=== PATIENT | female | born 1985 | race Hispanic/Latino ===

== ENCOUNTER 2019-02-27 16:39 | Inpatient (IN) | payer BC, MEDICAID, MEDICARE, OTHER ==
[2019-02-27 16:41] VITALS: BMI 23.7
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
[2019-02-27 17:53] LABS: PHENCYCLIDINE, UR NEGATIVE (NEGATIVE)
[2019-02-27 17:57] LABS: BARBITURATES, UR NEGATIVE (NEGATIVE); BENZODIAZEPINES, UR NEGATIVE (NEGATIVE); OPIATES, UR NEGATIVE (NEGATIVE)
[2019-02-27] MEDS ORDERED: Magnesium Sulfate 1 gm in D5W 1 GM/100 ML BAG IVPB ONE (18:33)
--- NOTE | 2019-02-27 21:16 | CARD ---
APPROVED REPORT Date of service: 02/27/2019 EKG Measurement Heart [id number] <Conclusion> NSR with bigemminal PVC's, rare couplet Leftward axis Slow R wave progression V1-3. Cannot exclde old ASMI CCR Abnormal ECG
[2019-02-27] MEDS ORDERED: levETIRAcetam 1000mg/100ml NS 100 ML IV ONE (21:45)
[2019-02-27] MEDS ORDERED: levETIRAcetam 1,000 MG in Sodium Chloride 0.9% 100 ML IVPB SCH (22:00)
[2019-02-27] MEDS: levETIRAcetam 1000mg/100ml NS 100 ML IV SCH (22:27)
[2019-02-27 23:05] LABS: BASO # 0.02 K/mm3 (0.0-2.0); BASO % 0.2 % (0.0-3.0); EOS % 0.1 % (1.5-5.0); HEMOGLOBIN 11.2 g/dL (12.0-16.0); LYMPH % 16.2 % (22.0-35.0); MEAN CELL VOLUME 88.9 fl (80.0-105.0); MEAN CORPUSCULAR HEMOGLOBIN 28.3 pg (25.0-35.0); MEAN CORPUSCULAR HGB CONC 31.8 g/dl (31.0-37.0); MEAN PLATELET VOLUME 9.6 fl (7.0-11.0); MONO % 8.2 % (1.0-6.0); RBC 3.96 10^6/uL (3.5-6.1); RED CELL DISTRIBUTION WIDTH 18.6 % (11.5-14.5); WHITE BLOOD COUNT 12.6 10^3/uL (4.5-11.0)
[2019-02-27 23:13] LABS: ALB/GLOB RATIO 1.2 (1.1-1.8); ALBUMIN 3.2 g/dL (3.0-4.8); ALT/SGPT 15 U/L (7-56); AST/SGOT 41 U/L (14-36); BLOOD UREA NITROGEN 6 mg/dL (7-21); GFR NON-AFRICAN AMERICAN > 60
[2019-02-27 23:24] LABS: TROPONIN I 0.08 ng/mL
[2019-02-27 23:29] LABS: FREE T4 0.86 ng/dL (0.78-2.19)
[2019-02-27] MEDS ORDERED: Pneumococcal 23-Valent Vaccine IM ONE (23:29)
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
[2019-02-28] MEDS ORDERED: Potassium Chloride 20 mEq ER Tab PO STA (05:03)
[2019-02-28 08:07] LABS: BASO # 0.03 K/mm3 (0.0-2.0); BASO % 0.3 % (0.0-3.0); EOS # 0.1 (0.0-0.7); EOS % 0.6 % (1.5-5.0); HEMOGLOBIN 10.6 g/dL (12.0-16.0); LYMPH % 37.8 % (22.0-35.0); MEAN CELL VOLUME 90.3 fl (80.0-105.0); MEAN CORPUSCULAR HEMOGLOBIN 27.8 pg (25.0-35.0); MEAN CORPUSCULAR HGB CONC 30.8 g/dl (31.0-37.0); MEAN PLATELET VOLUME 9.2 fl (7.0-11.0); MONO % 9.6 % (1.0-6.0); RBC 3.81 10^6/uL (3.5-6.1); WHITE BLOOD COUNT 10.7 10^3/uL (4.5-11.0)
[2019-02-28 08:18] LABS: ALB/GLOB RATIO 1.1 (1.1-1.8); ALBUMIN 2.9 g/dL (3.0-4.8); ALT/SGPT < 6 U/L (7-56); AST/SGOT 29 U/L (14-36); BLOOD UREA NITROGEN 8 mg/dL (7-21); CALCIUM 7.9 mg/dL (8.4-10.5); GFR NON-AFRICAN AMERICAN > 60
--- NOTE | 2019-02-28 08:28 | CT ---
Date of service: 02/27/2019 PROCEDURE: CT HEAD WITHOUT CONTRAST. HISTORY: s/p seizure COMPARISON: None available. TECHNIQUE: Axial computed tomography images were obtained through the head/brain without intravenous contrast. Radiation dose: Total exam DLP = 913.39 mGy-cm. This CT exam was performed using one or more of the following dose reduction techniques: Automated exposure control, adjustment of the mA and/or kV according to patient size, and/or use of iterative reconstruction technique. FINDINGS: HEMORRHAGE: No intracranial hemorrhage. BRAIN: No mass effect or edema. No atrophy or chronic microvascular ischemic changes. VENTRICLES: Unremarkable. No hydrocephalus. CALVARIUM: Unremarkable. PARANASAL SINUSES: Unremarkable as visualized. No significant inflammatory changes. MASTOID AIR CELLS: Unremarkable as visualized. No inflammatory changes. OTHER FINDINGS: The report concurs with the preliminary [facility] report IMPRESSION: Normal CT of the Head.
[2019-02-28] MEDS: levETIRAcetam 1000mg/100ml NS 100 ML IV SCH (09:55)
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
[2019-02-28 11:32] LABS: PHENCYCLIDINE, UR NEGATIVE (NEGATIVE)
[2019-02-28 11:34] LABS: BARBITURATES, UR NEGATIVE (NEGATIVE); BENZODIAZEPINES, UR NEGATIVE (NEGATIVE); OPIATES, UR NEGATIVE (NEGATIVE)
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
[2019-02-28] MEDS ORDERED: Lidocaine PF 2% (5 ml) Inj (For Cardiac Arrhy) ONE (13:17)
[2019-02-28] MEDS ORDERED: Nitroglycerin 50mg in D5W 50 MG/250 ML BOTTLE IV ONE (13:18)
[2019-02-28] MEDS ORDERED: Verapamil 2 ML ONE (13:18)
[2019-02-28] MEDS ORDERED: Phenylephrine 10 mg/ml Inj ONE (13:19)
[2019-02-28] MEDS ORDERED: Iohexol 350mgl/ml 50 ML ONE (13:20)
[2019-02-28] MEDS ORDERED: Iohexol 350 MG/100 ML VIAL ONE (13:20)
[2019-02-28] MEDS ORDERED: Midazolam 2 MG/2 ML VIAL ONE ×2 (13:47→14:04)
[2019-02-28] MEDS ORDERED: Bacitracin 500 Units/gm Oint Foilpak UD TOP ONE (14:18)
[2019-02-28] MEDS ORDERED: Sodium Chloride 0.9% 1,000 ML IV SCH (14:30)
--- NOTE | 2019-02-28 14:54 | CARD ---
APPROVED REPORT Date of service: 02/28/2019 Procedure(s) performed: Left Heart Catheterization HISTORY The patient is a 33 year-old female with a history of : chronic lung disease, tobacco history() : The patient is a current smoker , Hx of substance abuse in ppast , Hx of ETOH abuse admitted with three episode of Syncope ? Hx of VT.. INDICATION The indication(s) include : arrhythmia, syncope. CASE TECHNIQUE The patient was brought urgently to the Cardiac Catheterization Laboratory in a fasting state and was prepped and draped in a sterile manner. The left femoral groin was infiltrated with 2% Lidocaine subcutaneous anesthesia. A 6FR GLIDESHEATH ACCESS KIT sheath was inserted into the left radial artery without difficulty. Coronary angiography was performed using coronary diagnostic catheters. The left coronary system was accessed and visualized with a Diagnostic , 5F JL 4 CATH DXT 100 CM catheter. The right coronary system was accessed and visualized with a Diagnostic ,5F JR 4 CATH DXT 100 CM catheter. The left ventricle was accessed and visualized with a 5F PIGTAIL 145 CATH DXT 110 CM catheter. Left ventricular/Aortic Valve gradient assessed on pullback. Left ventriculogram was performed in DERAS projection. The patient tolerated the procedure well and there were no complications associated with the procedure. Vessel Analysis The patient's coronary anatomy is co-dominant. The left main coronary artery is a large size vessel without significant stenosis. The left main bifurcates to the left anterior descending and circumflex. The left anterior descending artery is a medium size vessel without significant stenosis. The first diagonal branch is a medium size vessel with intimal irregularities and without significant stenosis. The second diagonal branch is a medium size vessel without significant stenosis. The circumflex artery is a medium size vessel without significant stenosis. The first obtuse marginal branch is a small size vessel without significant stenosis. The left posterior descending artery is a medium size vessel without significant stenosis. The right coronary artery is a large size vessel with intimal irregularities. The right posterior descending artery is a medium size vessel with intimal irregularities and without significant stenosis. The right posterolateral branch is a medium size vessel with diffuse calcification noted throughout this vessel and without significant stenosis. Left Ventricle The left ventricle is enlarged in size with moderately decreased contractility. Non-Ischemic cardiomyopathy. The left ventricular ejection fraction is estimated to be 35%. The left ventricular end diastolic pressure is 12-14 mmHg. There was no gradient across the aortic valve upon pullback. Conclusion Normal coronaries Non Ischemic CMP, EF-35%, EDP-12-14 Recommendations Smoking Cessation Aggressive Medical TherapyCardiac Risk Reduction Program Abstinence of Substance abuse, Eval for EPS. Interim continue Corge, Lisinopril and ASA 81 mg po daily. CC; dr. Oquendo.
--- NOTE | 2019-02-28 15:28 | CPOSTOP ---
DATE: 02/28/2019 DICTATING PHYSICIAN: Matt Baer MD BLAST FURNACE BLOWER: Tiffany. TYPE OF ANESTHESIA: Moderate conscious sedation; total 3 mg of Versed and 150 of fentanyl given. PRE-PROCEDURE DIAGNOSES: Recurrent syncope, ventricular fibrillation, rule out ischemia, rule out cardiomyopathy. PROCEDURE PERFORMED: Left heart catheterization. FINDINGS: Normal coronaries, decreased LV function. FINAL DIAGNOSES: Nonischemic cardiomyopathy, ventricular tachycardia. POST PROCEDURE CONDITION: The patient's condition is stable. VASCULAR ACCESS SITE: Left radial. CLOSURE DEVICE: TR band. TOTAL RADIATION DOSE: 3616.2 milligray unit. CUMULATIVE DOSE: 500. TOTAL FLUORO TIME: 1.7 minutes. Matt Baer MD
[2019-02-28] MEDS ORDERED: Bacitracin 500 Units/gm Oint Foilpak UD ONE (17:49)
[2019-02-28 18:35] LABS: BLOOD UREA NITROGEN 7 mg/dL (7-21); CALCIUM 7.5 mg/dL (8.4-10.5); GFR NON-AFRICAN AMERICAN > 60
--- NOTE | 2019-02-28 18:55 | CARD ---
APPROVED REPORT Date of service: 02/28/2019 EKG Measurement Heart [id number] <Conclusion> Normal sinus rhythm Non specific T-wave changes Cannot rule out small or absent R waves V1-V3, may be due to lead placement or possible septal infarct age undetermined. Abnormal ECG
--- NOTE | 2019-02-28 20:22 | CARD ---
APPROVED REPORT Date of service: 02/28/2019 EXAM: Two-dimensional and M-mode echocardiogram with Doppler and color Doppler. INDICATION PVC, PAC,? SCD 2D DIMENSIONS IVSd0.8 (0.7-1.1cm)LVDd5.2 (3.9-5.9cm) PWd1.2 (0.7-1.1cm)LVDs4.4 (2.5-4.0cm) FS (%) 16.0 %LVEF (%)33.5 (>50%) M-Mode DIMENSIONS Aortic Root3.50 (2.2-3.7cm)Aortic Cusp Exc.1.90 (1.5-2.0cm) Aortic Valve AoV Peak Yhihykxm929.0cm/Gagan Peak GR.6mmHg Mitral Valve MV E Feircvvz29.1cm/sMV A Ztpmxkbi09.8cm/sE/A ratio0.8 TDI Lateral E' Peak V7.60cm/sMedial E' Peak V7.12cm/sE/Lateral E'9.4 E/Medial E'10.0 Pulmonary Valve PV Peak Giotgdnm05.8cm/sPV Peak Grad.1mmHg Tricuspid Valve TR Peak Mymcemzb024tp/sRAP [id number] Peak Gr.26mmHg [id number] LEFT VENTRICLE The left ventricle is normal size. There is normal left ventricular wall thickness. The systolic function is severely impaired. There is global hypokinesis of the left ventricle. Transmitral Doppler flow pattern is Grade I-abnormal relaxation pattern. No left ventricle thrombus noted on this study. RIGHT VENTRICLE The right ventricle is normal size. There is normal right ventricular wall thickness. The right ventricular systolic function is normal. ATRIA The left atrium size is normal. The right atrium size is normal. AORTIC VALVE The aortic valve is normal in structure. There is mild aortic regurgitation. There is no aortic valvular stenosis. MITRAL VALVE The mitral valve is normal in structure. Mitral regurgitation is mild. There is no mitral valve stenosis. TRICUSPID VALVE There is mild tricuspid regurgitation. There is mild pulmonary hypertension. PULMONIC VALVE There is mild pulmonic valvular regurgitation. GREAT VESSELS The aortic root is normal in size. The IVC is normal in size and collapses >50% with inspiration. <Conclusion> The left ventricle is normal size. There is normal left ventricular wall thickness. The systolic function is severely impaired. There is global hypokinesis of the left ventricle. Transmitral Doppler flow pattern is Grade I-abnormal relaxation pattern. No left ventricle thrombus noted on this study. There is mild aortic regurgitation. Mitral regurgitation is mild. There is mild tricuspid regurgitation. There is mild pulmonary hypertension.
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
[2019-03-01 07:16] LABS: BASO # 0.03 K/mm3 (0.0-2.0); BASO % 0.2 % (0.0-3.0); EOS # 0.1 (0.0-0.7); EOS % 0.7 % (1.5-5.0); HEMOGLOBIN 9.9 g/dL (12.0-16.0); LYMPH # 4.5 (1.2-3.4); LYMPH % 33.6 % (22.0-35.0); MEAN CELL VOLUME 91.1 fl (80.0-105.0); MEAN CORPUSCULAR HEMOGLOBIN 27.4 pg (25.0-35.0); MEAN CORPUSCULAR HGB CONC 30.1 g/dl (31.0-37.0); MEAN PLATELET VOLUME 9.5 fl (7.0-11.0); RBC 3.61 10^6/uL (3.5-6.1); WHITE BLOOD COUNT 13.5 10^3/uL (4.5-11.0)
[2019-03-01 07:36] LABS: ALBUMIN 2.7 g/dL (3.0-4.8); ALT/SGPT 17 U/L (7-56); AST/SGOT 30 U/L (14-36); BLOOD UREA NITROGEN 10 mg/dL (7-21); CALCIUM 7.7 mg/dL (8.4-10.5); GFR NON-AFRICAN AMERICAN > 60
--- NOTE | 2019-03-01 08:44 | CP.PCM.PN ---
Subjective - Date & Time of Evaluation Date of Evaluation: 03/01/19 Time of Evaluation: 07:40 - Subjective Subjective: Rock Lee DO, PGY-2: Neurology Progress Note For Dr. Rajan Patient was seen and examined at bedside. She reports no chest pain, seizure like activity, or distress. No adverse events noted in the interim. Objective - Vital Signs/Intake and Output Vital Signs (last 24 hours): Temp Pulse Resp BP Pulse Ox 98.4 F 56 L 18 103/67 97 03/01/19 06:00 03/01/19 06:00 03/01/19 06:00 03/01/19 06:00 03/01/19 06:00 Intake and Output: 03/01/19 03/01/19 06:59 18:59 Intake Total 1979 Balance 1979 - Medications Medications: Current Medications Acetaminophen (Tylenol 325mg Tab) 650 mg PO Q6H PRN PRN Reason: Pain, Mild (1-3) Last Admin: 02/28/19 10:06 Dose: 650 mg Aspirin (Aspirin Chewable) 81 mg PO DAILY [facility] Carvedilol (Coreg) 3.125 mg PO BID [facility] Last Admin: 02/28/19 18:38 Dose: Not Given Lisinopril (Zestril) 2.5 mg PO DAILY [facility] Lorazepam (Ativan) 2 mg IVP Q6H PRN; Protocol PRN Reason: Seizure activity Methadone HCl (Methadone) 160 mg PO DAILY [facility] Last Admin: 02/28/19 14:55 Dose: 160 mg Nicotine (Nicoderm Cq) 1 patch TD DAILY [facility] Last Admin: 02/28/19 09:55 Dose: 1 patch - Labs Labs: 03/01/19 06:40 03/01/19 06:40 - Constitutional Appears: Well, Non-toxic - Head Exam Head Exam: ATRAUMATIC, NORMOCEPHALIC - Eye Exam Eye Exam: EOMI, Normal appearance - ENT Exam ENT Exam: Mucous Membranes Moist - Neck Exam Neck Exam: Normal Inspection - Respiratory Exam Respiratory Exam: NORMAL BREATHING PATTERN. absent: Accessory Muscle Use - Cardiovascular Exam Cardiovascular Exam: RRR, +S1, +S2 - GI/Abdominal Exam GI & Abdominal Exam: Soft. absent: Tenderness, Rebound - Extremities Exam Extremities Exam: Normal Inspection. absent: Calf Tenderness - Neurological Exam Neurological Exam: Alert, Awake, CN II-XII Intact, Oriented x3 Neuro motor strength exam: Left Upper Extremity: 5, Right Upper Extremity: 5, Left Lower Extremity: 5, Right Lower Extremity: 5 - Psychiatric Exam Psychiatric exam: Normal Affect, Normal Mood - Skin Skin Exam: Dry, Intact, Normal Color, Warm Assessment and Plan - Assessment and Plan (Free Text) Assessment: 33 year old female with a past medical history of gastric bypass, heroine abuse now on Methadone who presents after having two spells concerning for seizures. She appeared to be hyperventilating and became flushed in appearance, both times the events occurred. 1) Questionable seizure - Recommend video EEG and MRI once patient is stable from a cardiac standpoint - keppra not recommended at this time, and therefore discontinued - Patient did not have post-ictal state, and appear more syncopal/near syncopal 2) Rule out underlying cardiac disorder - Telemetry - Cardiology consult - Continue with full work-up Case was reviewed and discussed with attending physician, Dr. Rajan
--- NOTE | 2019-03-01 15:02 | CP.PCM.PN ---
<Elida Rollins - Last Filed: 03/01/19 16:04> Subjective - Date & Time of Evaluation Date of Evaluation: 03/01/19 Time of Evaluation: 09:30 - Subjective Subjective: INTERNAL MEDICINE PROGRESS NOTE FOR DR. NICK Rollins PGY1 Pt seen and examined at bedside this am. PT had cardiac cath yesterday, tolerated procedure well, hasn't had any repeat episodes of syncope/seizure like episodes. She denies ROS this am. Objective - Vital Signs/Intake and Output Vital Signs (last 24 hours): Temp Pulse Resp BP Pulse Ox 97.9 F 80 18 134/89 97 03/01/19 12:00 03/01/19 14:00 03/01/19 12:00 03/01/19 12:00 03/01/19 06:00 Intake and Output: 03/01/19 03/01/19 06:59 18:59 Intake Total 1979 Balance 1979 - Medications Medications: Current Medications Acetaminophen (Tylenol 325mg Tab) 650 mg PO Q6H PRN PRN Reason: Pain, Mild (1-3) Last Admin: 02/28/19 10:06 Dose: 650 mg Aspirin (Aspirin Chewable) 81 mg PO DAILY [facility] Last Admin: 03/01/19 10:19 Dose: 81 mg Carvedilol (Coreg) 3.125 mg PO BID [facility] Last Admin: 03/01/19 10:20 Dose: 3.125 mg Lisinopril (Zestril) 2.5 mg PO DAILY [facility] Last Admin: 03/01/19 10:19 Dose: 2.5 mg Lorazepam (Ativan) 2 mg IVP Q6H PRN; Protocol PRN Reason: Seizure activity Methadone HCl (Methadone) 160 mg PO DAILY [facility] Last Admin: 03/01/19 10:20 Dose: 160 mg Multivitamins (Thera Tab) 1 tab PO 0800 [facility] Nicotine (Nicoderm Cq) 1 patch TD DAILY [facility] Last Admin: 03/01/19 10:23 Dose: 1 patch - Labs Labs: 03/01/19 06:40 03/01/19 06:40 - Constitutional Appears: Well, Non-toxic, No Acute Distress - Head Exam Head Exam: NORMAL INSPECTION, NORMOCEPHALIC - Eye Exam Eye Exam: EOMI, Normal appearance - ENT Exam ENT Exam: Mucous Membranes Moist, Normal Exam - Neck Exam Neck Exam: Normal Inspection - Respiratory Exam Respiratory Exam: Clear to Ausculation Bilateral, NORMAL BREATHING PATTERN - Cardiovascular Exam Cardiovascular Exam: REGULAR RHYTHM, +S1, +S2 - GI/Abdominal Exam GI & Abdominal Exam: Soft. absent: Tenderness - Extremities Exam Extremities Exam: Normal Inspection. absent: Calf Tenderness - Back Exam Back Exam: NORMAL INSPECTION - Neurological Exam Neurological Exam: Alert, Awake, Oriented x3 - Psychiatric Exam Psychiatric exam: Normal Affect, Normal Mood - Skin Skin Exam: Dry, Intact, Warm Assessment and Plan - Assessment and Plan (Free Text) Assessment: 33y/o F with PMH of heroin abuse on methadone presented to ED after several episodes of syncope/questionable seizure like episodes Plan: Syncope Initial EKG revealed multiple PACs, PVCs. Head CT: No acute findings Likely cardiogenic. s/p urgent cardiac catheterization revealing non-ischemic CMP, EF-EF%, EDP 12-14% Started on ASA, coreg, HAILE-i [facility] [place] [place] Montes Continue monitoring on telemetry Neurology recommending video EEG/MRI once cardiologically stable. No seizure prophylaxis at this time per neuro Hx heroin abuse Denies use in past 4 months Currently on methadone 160mg. Confirmed with [facility] Tobacco use disorder Counselled on cessation Nicotine patch ordered DVT/GI PPX: SCD/pepcid Case reviewed with attending physician, Dr. Nick Rollins PGY1 <Peggy Oquendo - Last Filed: 03/02/19 14:23> Objective - Vital Signs/Intake and Output Vital Signs (last 24 hours): Temp Pulse Resp BP Pulse Ox 98 F 56 L 20 119/69 99 03/02/19 12:00 03/02/19 12:00 03/02/19 12:00 03/02/19 12:00 03/02/19 05:35 Intake and Output: 03/02/19 03/02/19 06:59 18:59 Intake Total 480 Balance 480 - Medications Medications: Current Medications Acetaminophen (Tylenol 325mg Tab) 650 mg PO Q6H PRN PRN Reason: Pain, Mild (1-3) Last Admin: 03/01/19 20:46 Dose: 650 mg Aspirin (Aspirin Chewable) 81 mg PO DAILY [facility] Last Admin: 03/02/19 10:01 Dose: 81 mg Carvedilol (Coreg) 3.125 mg PO BID [facility] Last Admin: 03/02/19 10:03 Dose: 3.125 mg Famotidine (Pepcid) 20 mg PO 1000,2200 [facility] Last Admin: 03/02/19 10:02 Dose: 20 mg Lisinopril (Zestril) 2.5 mg PO DAILY [facility] Last Admin: 03/02/19 10:03 Dose: 2.5 mg Lorazepam (Ativan) 0.5 mg PO TID PRN; Protocol PRN Reason: Anxiety Last Admin: 03/02/19 10:07 Dose: 0.5 mg Methadone HCl (Methadone) 160 mg PO DAILY [facility] Last Admin: 03/02/19 10:03 Dose: 160 mg Multivitamins (Thera Tab) 1 tab PO 0800 [facility] Last Admin: 03/02/19 10:02 Dose: 1 tab Nicotine (Nicoderm Cq) 1 patch TD DAILY [facility] Last Admin: 03/02/19 10:02 Dose: 1 patch - Labs Labs: 03/02/19 07:00 03/02/19 07:00 Attending/Attestation - Attestation I have personally seen and examined this patient.: Yes I have fully participated in the care of the patient.: Yes I have reviewed all pertinent clinical information, including history, physical exam and plan: Yes Notes (Text): 03/02/19 14:04 Attending note; Patient seen and examined with resident. Patient is status post cardiac cath. Left wrist site is clean. Denies any chest pain. Denies any palpitations. Denies any fevers, chills Patient is a 33-year-old female with PMH of heroin abuse on methadone, alcohol abuse presented to ED after several episodes of syncope/questionable seizure l timoteo episodes. 1. Episodes of syncope; EKG shows multiple PVCs. Status post cardiac cath today. Likely cardiogenic. s/p urgent cardiac catheterization revealing non-ischemic CMP, EF-EF of 35%. Case discussed with Cardiology in detail. patient had non sustained VT. 2. Arrythmia: EP evaluation appreciated. plan for transfer to [facility] [place] for [place] study and possible AICD placement. 3. Leukocytosis: patient is aafebrile and nontoxic. No symptoms of sepsis. 4. Hypocalcemia: corrected calcium is normal. 5. opiate abuse: currently on methadone. case discussed with patient and patient's mother in detail . treatment plan explained in detail.
[2019-03-01] MEDS ORDERED: Nitroglycerin 2% Ointment Foilpak UD TOP STA (19:35)
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
--- NOTE | 2019-03-01 19:41 | CP.PCM.PN ---
<Janina Woods - Last Filed: 03/01/19 19:37> Subjective - Date & Time of Evaluation Date of Evaluation: 03/01/19 Time of Evaluation: 19:37 - Subjective Subjective: house doctor page for chest pain, Kareem Woods PGY3 Patient was complaining of chest pain that is in the center of her chest and radiates straight to her back. She reports she has never had this feeling before. She recently had a cath this admission which showed normal coronaries, but low EF. She also reports some diaphoresis, shortness of breath and numbness in the R wrist. The pain is a pressure that does NOT radiate to the neck or arms, just straight to the back. The chest is also painful on palpation. She denies headache, fever/chills, abdominal pain, nausea/vomiting/diarrhea. She denies having anxiety at this time. Objective - Vital Signs/Intake and Output Vital Signs (last 24 hours): Temp Pulse Resp BP Pulse Ox 97.9 F 61 18 104/63 97 03/01/19 16:36 03/01/19 18:00 03/01/19 16:36 03/01/19 16:36 03/01/19 16:36 Intake and Output: 03/01/19 03/02/19 18:59 06:59 Intake Total 1960 Balance 1960 - Medications Medications: Current Medications Acetaminophen (Tylenol 325mg Tab) 650 mg PO Q6H PRN PRN Reason: Pain, Mild (1-3) Last Admin: 02/28/19 10:06 Dose: 650 mg Aspirin (Aspirin Chewable) 81 mg PO DAILY [facility] Last Admin: 03/01/19 10:19 Dose: 81 mg Carvedilol (Coreg) 3.125 mg PO BID [facility] Last Admin: 03/01/19 18:25 Dose: Not Given Famotidine (Pepcid) 20 mg PO 1000,2200 [facility] Lisinopril (Zestril) 2.5 mg PO DAILY [facility] Last Admin: 03/01/19 10:19 Dose: 2.5 mg Lorazepam (Ativan) 2 mg IVP Q6H PRN; Protocol PRN Reason: Seizure activity Methadone HCl (Methadone) 160 mg PO DAILY [facility] Last Admin: 03/01/19 10:20 Dose: 160 mg Multivitamins (Thera Tab) 1 tab PO 0800 [facility] Nicotine (Nicoderm Cq) 1 patch TD DAILY [facility] Last Admin: 03/01/19 10:23 Dose: 1 patch Nitroglycerin (Nitro-Bid 2% Oint) 1 ea TOP STAT STA Stop: 03/01/19 19:36 - Labs Labs: 03/01/19 06:40 03/01/19 06:40 - Constitutional Appears: No Acute Distress - Head Exam Head Exam: ATRAUMATIC, NORMAL INSPECTION, NORMOCEPHALIC - Eye Exam Eye Exam: Normal appearance, PERRL Pupil Exam: NORMAL ACCOMODATION, PERRL - ENT Exam ENT Exam: Mucous Membranes Moist - Respiratory Exam Respiratory Exam: Chest Wall Tenderness (sternal tenderness), Wheezes (at bases), NORMAL BREATHING PATTERN. absent: Rales, Rhonchi - Cardiovascular Exam Cardiovascular Exam: REGULAR RHYTHM, +S1, +S2. absent: Gallop, Rubs, Murmur - GI/Abdominal Exam GI & Abdominal Exam: Soft, Normal Bowel Sounds. absent: Tenderness - Extremities Exam Extremities Exam: Normal Inspection. absent: Calf Tenderness, Pedal Edema - Neurological Exam Neurological Exam: Alert, Awake, CN II-XII Intact, Oriented x3 - Psychiatric Exam Psychiatric exam: Normal Affect, Normal Mood - Skin Skin Exam: Dry, Warm Assessment and Plan - Assessment and Plan (Free Text) Assessment: 1. atypical chest pain - vitals stable - ekg in sinus rhythm and did not show acute changes- some artifact because patient wasn't able to sit still - will order cbc, cmp and troponin - will give 1/2inch of nitro paste once- dc if bp <100 case seen, discussed and reviewed with attending abdirahman woods pgy3 <Darren Grande - Last Filed: 03/02/19 06:28> Objective - Vital Signs/Intake and Output Vital Signs (last 24 hours): Temp Pulse Resp BP Pulse Ox 97.8 F 56 L 18 94/57 L 99 03/02/19 05:35 03/02/19 05:35 03/02/19 05:35 03/02/19 05:35 03/02/19 05:35 Intake and Output: 03/01/19 03/02/19 18:59 06:59 Intake Total 1960 480 Balance 1960 480 - Medications Medications: Current Medications Acetaminophen (Tylenol 325mg Tab) 650 mg PO Q6H PRN PRN Reason: Pain, Mild (1-3) Last Admin: 03/01/19 20:46 Dose: 650 mg Aspirin (Aspirin Chewable) 81 mg PO DAILY [facility] Last Admin: 03/01/19 10:19 Dose: 81 mg Carvedilol (Coreg) 3.125 mg PO BID [facility] Last Admin: 03/01/19 18:25 Dose: Not Given Famotidine (Pepcid) 20 mg PO 1000,2200 [facility] Last Admin: 03/01/19 22:22 Dose: 20 mg Lisinopril (Zestril) 2.5 mg PO DAILY [facility] Last Admin: 03/01/19 10:19 Dose: 2.5 mg Lorazepam (Ativan) 2 mg IVP Q6H PRN; Protocol PRN Reason: Seizure activity Methadone HCl (Methadone) 160 mg PO DAILY [facility] Last Admin: 03/01/19 10:20 Dose: 160 mg Multivitamins (Thera Tab) 1 tab PO 0800 [facility] Nicotine (Nicoderm Cq) 1 patch TD DAILY [facility] Last Admin: 03/01/19 10:23 Dose: 1 patch - Labs Labs: 03/01/19 19:38 03/01/19 19:38 Attending/Attestation - Attestation I have personally seen and examined this patient.: No I have fully participated in the care of the patient.: No I have reviewed all pertinent clinical information, including history, physical exam and plan: No
[2019-03-01 19:49] LABS: HEMOGLOBIN 10.7 g/dL (12.0-16.0); MEAN CORPUSCULAR HEMOGLOBIN 28.2 pg (25.0-35.0); MEAN PLATELET VOLUME 9.1 fl (7.0-11.0); RBC 3.79 10^6/uL (3.5-6.1); RED CELL DISTRIBUTION WIDTH 19.1 % (11.5-14.5); WHITE BLOOD COUNT 12.8 10^3/uL (4.5-11.0)
[2019-03-01 20:04] LABS: TROPONIN I < 0.01 ng/mL
[2019-03-01 20:14] LABS: ALB/GLOB RATIO 1.2 (1.1-1.8); ALBUMIN 3.2 g/dL (3.0-4.8); ALT/SGPT 10 U/L (7-56); AST/SGOT 23 U/L (14-36); BLOOD UREA NITROGEN 9 mg/dL (7-21); CALCIUM 8.2 mg/dL (8.4-10.5); GFR NON-AFRICAN AMERICAN > 60
[2019-03-02 08:08] LABS: BASO # 0.03 K/mm3 (0.0-2.0); BASO % 0.3 % (0.0-3.0); EOS # 0.1 (0.0-0.7); EOS % 0.7 % (1.5-5.0); HEMOGLOBIN 9.9 g/dL (12.0-16.0); LYMPH # 3.3 (1.2-3.4); LYMPH % 30.2 % (22.0-35.0); MEAN CELL VOLUME 92.1 fl (80.0-105.0); MEAN CORPUSCULAR HGB CONC 30.5 g/dl (31.0-37.0); MEAN PLATELET VOLUME 9.3 fl (7.0-11.0); MONO % 9.1 % (1.0-6.0); RBC 3.53 10^6/uL (3.5-6.1); RED CELL DISTRIBUTION WIDTH 19.5 % (11.5-14.5); WHITE BLOOD COUNT 10.8 10^3/uL (4.5-11.0)
[2019-03-02 08:25] LABS: ALB/GLOB RATIO 1.1 (1.1-1.8); ALBUMIN 2.9 g/dL (3.0-4.8); ALT/SGPT 15 U/L (7-56); AST/SGOT 23 U/L (14-36); BLOOD UREA NITROGEN 9 mg/dL (7-21); GFR NON-AFRICAN AMERICAN > 60
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
[2019-03-02] MEDS: Multivitamin Therapeutic Tab PO SCH (10:02)
--- NOTE | 2019-03-02 11:45 | CP.PCM.PN ---
<Elida Rollins - Last Filed: 03/02/19 11:42> Subjective - Date & Time of Evaluation Date of Evaluation: 03/02/19 Time of Evaluation: 11:42 - Subjective Subjective: INTERNAL MEDICINE PROGRESS NOTE FOR DR. NICK Rollins PGY1 Pt seen and examined at bedside this am. Overnight pt had non-specific episodes of chest pain alleviated with nitroglycerin. Cardiology made aware with no new orders. Pt reports anxiety, otherwise denies ROS Objective - Vital Signs/Intake and Output Vital Signs (last 24 hours): Temp Pulse Resp BP Pulse Ox 97.8 F 62 18 118/70 99 03/02/19 05:35 03/02/19 10:03 03/02/19 05:35 03/02/19 10:03 03/02/19 05:35 Intake and Output: 03/02/19 03/02/19 06:59 18:59 Intake Total 480 Balance 480 - Medications Medications: Current Medications Acetaminophen (Tylenol 325mg Tab) 650 mg PO Q6H PRN PRN Reason: Pain, Mild (1-3) Last Admin: 03/01/19 20:46 Dose: 650 mg Aspirin (Aspirin Chewable) 81 mg PO DAILY [facility] Last Admin: 03/02/19 10:01 Dose: 81 mg Carvedilol (Coreg) 3.125 mg PO BID [facility] Last Admin: 03/02/19 10:03 Dose: 3.125 mg Famotidine (Pepcid) 20 mg PO 1000,2200 [facility] Last Admin: 03/02/19 10:02 Dose: 20 mg Lisinopril (Zestril) 2.5 mg PO DAILY [facility] Last Admin: 03/02/19 10:03 Dose: 2.5 mg Lorazepam (Ativan) 2 mg IVP Q6H PRN; Protocol PRN Reason: Seizure activity Lorazepam (Ativan) 0.5 mg PO TID PRN; Protocol PRN Reason: Anxiety Last Admin: 03/02/19 10:07 Dose: 0.5 mg Methadone HCl (Methadone) 160 mg PO DAILY [facility] Last Admin: 03/02/19 10:03 Dose: 160 mg Multivitamins (Thera Tab) 1 tab PO 0800 [facility] Last Admin: 03/02/19 10:02 Dose: 1 tab Nicotine (Nicoderm Cq) 1 patch TD DAILY [facility] Last Admin: 03/02/19 10:02 Dose: 1 patch - Labs Labs: 03/02/19 07:00 03/02/19 07:00 - Constitutional Appears: Well, Non-toxic, No Acute Distress - Head Exam Head Exam: NORMAL INSPECTION, NORMOCEPHALIC - Eye Exam Eye Exam: EOMI, Normal appearance - ENT Exam ENT Exam: Mucous Membranes Moist, Normal Exam - Neck Exam Neck Exam: Normal Inspection - Respiratory Exam Respiratory Exam: Clear to Ausculation Bilateral, NORMAL BREATHING PATTERN - Cardiovascular Exam Cardiovascular Exam: REGULAR RHYTHM, +S1, +S2 - GI/Abdominal Exam GI & Abdominal Exam: Soft. absent: Tenderness - Extremities Exam Extremities Exam: Normal Inspection. absent: Calf Tenderness - Back Exam Back Exam: NORMAL INSPECTION - Neurological Exam Neurological Exam: Alert, Awake, Oriented x3 - Psychiatric Exam Psychiatric exam: Normal Affect, Normal Mood - Skin Skin Exam: Dry, Intact, Warm Assessment and Plan - Assessment and Plan (Free Text) Assessment: 33y/o F with PMH of heroin abuse on methadone presented to ED after several episodes of syncope/questionable seizure like episodes Plan: Syncope Initial EKG revealed multiple PACs, PVCs. Head CT: No acute findings Likely cardiogenic. s/p urgent cardiac catheterization revealing non-ischemic CMP, EF-EF%, EDP 12-14% Started on ASA, coreg, HAILE-i Pending EP study @[facility] 03/04/[address] Montes Continue monitoring on telemetry Neurology recommending video EEG/MRI once cardiologically stable. No seizure prophylaxis at this time per neuro Hx heroin abuse Denies use in past 4 months Currently on methadone 160mg. Confirmed with [facility] Tobacco use disorder Counselled on cessation Nicotine patch ordered Anxiety will continue ativan DVT/GI PPX: SCD/pepcid Dispo: Pt to be transferred for EP study at [facility] with Dr. Montes, at 10am. Arrangements have been made with for transfer 7am Case reviewed with attending physician, Dr. Nick Rollins PGY1 <Peggy Oquendo - Last Filed: 03/02/19 14:36> Objective - Vital Signs/Intake and Output Vital Signs (last 24 hours): Temp Pulse Resp BP Pulse Ox 98 F 56 L 20 119/69 99 03/02/19 12:00 03/02/19 12:00 03/02/19 12:00 03/02/19 12:00 03/02/19 05:35 Intake and Output: 03/02/19 03/02/19 06:59 18:59 Intake Total 480 Balance 480 - Medications Medications: Current Medications Acetaminophen (Tylenol 325mg Tab) 650 mg PO Q6H PRN PRN Reason: Pain, Mild (1-3) Last Admin: 03/01/19 20:46 Dose: 650 mg Aspirin (Aspirin Chewable) 81 mg PO DAILY [facility] Last Admin: 03/02/19 10:01 Dose: 81 mg Carvedilol (Coreg) 3.125 mg PO BID [facility] Last Admin: 03/02/19 10:03 Dose: 3.125 mg Famotidine (Pepcid) 20 mg PO 1000,2200 [facility] Last Admin: 03/02/19 10:02 Dose: 20 mg Ceftriaxone Sodium (Rocephin 1 Gram Ivpb) 1 gm in 100 mls @ 100 mls/hr IVPB DAILY [facility]; Protocol Lisinopril (Zestril) 2.5 mg PO DAILY [facility] Last Admin: 03/02/19 10:03 Dose: 2.5 mg Lorazepam (Ativan) 0.5 mg PO TID PRN; Protocol PRN Reason: Anxiety Last Admin: 03/02/19 10:07 Dose: 0.5 mg Methadone HCl (Methadone) 160 mg PO DAILY [facility] Last Admin: 03/02/19 10:03 Dose: 160 mg Multivitamins (Thera Tab) 1 tab PO 0800 [facility] Last Admin: 03/02/19 10:02 Dose: 1 tab Nicotine (Nicoderm Cq) 1 patch TD DAILY [facility] Last Admin: 03/02/19 10:02 Dose: 1 patch - Labs Labs: 03/02/19 07:00 03/02/19 07:00 Attending/Attestation - Attestation I have personally seen and examined this patient.: Yes I have fully participated in the care of the patient.: Yes I have reviewed all pertinent clinical information, including history, physical exam and plan: Yes Notes (Text): 03/02/19 14:26 Attending note; Patient seen and examined with resident. Patient is status post cardiac cath. currently Denies any chest pain. Denies any palpitations. Denies any fevers, chills. Denies any urinary symptoms. Patient is a 33-year-old female with PMH of heroin abuse on methadone, alcohol abuse presented to ED after several episodes of syncope/questionable seizure like episodes. 1. Episodes of syncope; EKG shows multiple PVCs. Status post cardiac cath today. Likely cardiogenic. s/p urgent cardiac catheterization revealing non-ischemic CMP, EF-EF of 35%. Currently on aspirin, Coreg and lisinopril. Will adjust medications as per cardiology. Case discussed with Cardiology in detail. Currently no episodes of tachycardia. 2. Arrythmia: EP evaluation appreciated. plan for transfer to [facility] on monday for EP study and possible AICD placement. 3. Leukocytosis: resolved. patient is afebrile and nontoxic. No symptoms of sepsis. Urine culture is positive. Started on IV Rocephin . 4. Hypocalcemia: corrected calcium is normal. 5. Hypoalbuminemia; nutrition evaluation ordered. 6. Past heroin/ opiate abuse: Patient is currently on methadone program. currently on methadone. 7. Anxiety; started on low-dose Ativan. 8. Smoking; smoking cessation is strongly advised . Patient is on NicoDerm patch. 9. Mild Anemia; no active bleeding noted. Monitor closely. Iron studies ordered . Case discussed with director of casework in detail yesterday. Patient will be transferred to [facility] on Monday. Diagnosis, treatment plan discussed with patient in detail.
[2019-03-02] MEDS: cefTRIAXone 1 gm 1 GM/100 ML BAG IVPB SCH (15:25)
[2019-03-02 18:29] LABS: PH,URINE 6.5 (4.7-8.0); URINE BILIRUBIN NEGATIVE (NEGATIVE); URINE BLOOD NEGATIVE (NEGATIVE); URINE GLUCOSE (UA) NEGATIVE (NEGATIVE); URINE LEUKOCYTE ESTERASE NEGATIVE Leu/uL (NEGATIVE); URINE PROTEIN NEGATIVE mg/dL (<30 mg/dL); URINE UROBILINOGEN 0.2 E.U./dL (<1 E.U./dL)
[2019-03-02 18:30] LABS: URINE APPEARANCE CLEAR (CLEAR); URINE COLOR LIGHT YELLOW (YELLOW)
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
[2019-03-03 07:53] LABS: IRON 23 ug/dL (45-180)
[2019-03-03 08:02] LABS: % IRON SATURATION 6 % (20-55); TOTAL IRON BINDING CAPACITY 379 ug/dL (265-497)
[2019-03-03] MEDS: Multivitamin Therapeutic Tab PO SCH (09:09)
[2019-03-03] MEDS: cefTRIAXone 1 gm 1 GM/100 ML BAG IVPB SCH (09:10)
--- NOTE | 2019-03-03 12:01 | CP.PCM.PN ---
<Oriana Navarro L - Last Filed: 03/03/19 14:25> Subjective - Date & Time of Evaluation Date of Evaluation: 03/03/19 Time of Evaluation: 08:30 - Subjective Subjective: Resident Progress Note for Hospitalist Service Patient examined at bedside. No acute events overnight. Patient resting in bed comfortably, denying any symptomatic complaints. Patient to be transferred to [facility] tomorrow for EP study scheduled at [address] Ye. Patient in agreement with plan of management with all questions and concerns addressed. Objective - Vital Signs/Intake and Output Vital Signs (last 24 hours): Temp Pulse Resp BP Pulse Ox 97.5 F L 66 20 128/69 97 03/03/19 05:54 03/03/19 09:10 03/03/19 05:54 03/03/19 09:10 03/03/19 05:54 Intake and Output: 03/03/19 03/03/19 06:59 18:59 Intake Total 240 Balance 240 - Medications Medications: Current Medications Acetaminophen (Tylenol 325mg Tab) 650 mg PO Q6H PRN PRN Reason: Pain, Mild (1-3) Last Admin: 03/01/19 20:46 Dose: 650 mg Aspirin (Aspirin Chewable) 81 mg PO DAILY COUNT INCLUDES THE [facility] Last Admin: 03/03/19 09:09 Dose: 81 mg Carvedilol (Coreg) 3.125 mg PO BID COUNT INCLUDES THE [facility] Last Admin: 03/03/19 09:10 Dose: 3.125 mg Famotidine (Pepcid) 20 mg PO 1000,2200 COUNT INCLUDES THE [facility] Last Admin: 03/03/19 09:09 Dose: 20 mg Ceftriaxone Sodium (Rocephin 1 Gram Ivpb) 1 gm in 100 mls @ 100 mls/hr IVPB DAILY COUNT INCLUDES THE [facility]; Protocol Last Admin: 03/03/19 09:10 Dose: 100 mls/hr Lisinopril (Zestril) 2.5 mg PO DAILY COUNT INCLUDES THE [facility] Last Admin: 03/03/19 09:09 Dose: 2.5 mg Lorazepam (Ativan) 0.5 mg PO TID PRN; Protocol PRN Reason: Anxiety Last Admin: 03/03/19 09:09 Dose: 0.5 mg Methadone HCl (Methadone) 160 mg PO DAILY COUNT INCLUDES THE [facility] Last Admin: 03/03/19 09:10 Dose: 160 mg Multivitamins (Thera Tab) 1 tab PO 0800 COUNT INCLUDES THE [facility] Last Admin: 03/03/19 09:09 Dose: 1 tab Nicotine (Nicoderm Cq) 1 patch TD DAILY COUNT INCLUDES THE [facility] Last Admin: 03/03/19 09:09 Dose: 1 patch - Labs Labs: 03/02/19 07:00 03/02/19 07:00 - Additional Findings Additional findings: - Constitutional Appears: Non-toxic, No Acute Distress - Head Exam Head Exam: NORMAL INSPECTION, NORMOCEPHALIC - Eye Exam Eye Exam: EOMI, Normal appearance - ENT Exam ENT Exam: Mucous Membranes Moist, Normal Exam - Neck Exam Neck Exam: Normal Inspection - Respiratory Exam Respiratory Exam: Clear to Auscultation Bilateral, NORMAL BREATHING PATTERN. absent: Respiratory Distress - Cardiovascular Exam Cardiovascular Exam: REGULAR RHYTHM, +S1, +S2. absent: Tachycardia - GI/Abdominal Exam GI & Abdominal Exam: Soft. absent: Tenderness - Extremities Exam Extremities Exam: Normal Inspection. absent: Calf Tenderness - Neurological Exam Neurological Exam: Alert, Awake, Oriented x3 - Skin Skin Exam: Dry, Intact, Warm Assessment and Plan - Assessment and Plan (Free Text) Assessment: Patient is a 33 year old female with past medical history of heroin abuse on methadone presenting with several episodes of syncope/seizure like episodes. Plan: Syncope - EKG revealed multiple PACs, PVCs - Head CT shows no acute findings - s/p cardiac catheterization revealing non-ischemic CMP, EF-EF%, EDP 12-14% - Started on ASA, Coreg, ACEI - EP study @[facility] 03/04/[address] Montes - Continue monitoring on telemetry - Neurology recommending video EEG/MRI once cardiologically stable - no seizure prophylaxis at this time per neurology UTI - in the setting of interventional procedure - urine culture growing gram negative rods - Rocephin 1 gm IV daily Hx heroin abuse - last use 4 months prior - UDS negative for opiates - currently on methadone 160mg, [facility] Tobacco use disorder - Nicotine patch - cessation counseling Anxiety - continue ativan PRN PPX - SCDs/pepcid Case reviewed with Dr. Jere Navarro PGY-1 <Peggy Oquendo - Last Filed: 03/03/19 14:53> Objective - Vital Signs/Intake and Output Vital Signs (last 24 hours): Temp Pulse Resp BP Pulse Ox 98 F 53 L 19 102/69 97 03/03/19 12:00 03/03/19 12:00 03/03/19 12:00 03/03/19 12:00 03/03/19 05:54 Intake and Output: 03/03/19 03/03/19 06:59 18:59 Intake Total 240 Balance 240 - Medications Medications: Current Medications Acetaminophen (Tylenol 325mg Tab) 650 mg PO Q6H PRN PRN Reason: Pain, Mild (1-3) Last Admin: 03/01/19 20:46 Dose: 650 mg Aspirin (Aspirin Chewable) 81 mg PO DAILY COUNT INCLUDES THE [facility] Last Admin: 03/03/19 09:09 Dose: 81 mg Carvedilol (Coreg) 3.125 mg PO BID COUNT INCLUDES THE [facility] Last Admin: 03/03/19 09:10 Dose: 3.125 mg Famotidine (Pepcid) 20 mg PO 1000,2200 COUNT INCLUDES THE [facility] Last Admin: 03/03/19 09:09 Dose: 20 mg Ceftriaxone Sodium (Rocephin 1 Gram Ivpb) 1 gm in 100 mls @ 100 mls/hr IVPB DAILY [facility]; Protocol Last Admin: 03/03/19 09:10 Dose: 100 mls/hr Lisinopril (Zestril) 2.5 mg PO DAILY COUNT INCLUDES THE [facility] Last Admin: 03/03/19 09:09 Dose: 2.5 mg Lorazepam (Ativan) 0.5 mg PO TID PRN; Protocol PRN Reason: Anxiety Last Admin: 03/03/19 09:09 Dose: 0.5 mg Methadone HCl (Methadone) 160 mg PO DAILY COUNT INCLUDES THE [facility] Last Admin: 03/03/19 09:10 Dose: 160 mg Multivitamins (Thera Tab) 1 tab PO 0800 [facility] Last Admin: 03/03/19 09:09 Dose: 1 tab Nicotine (Nicoderm Cq) 1 patch TD DAILY COUNT INCLUDES THE [facility] Last Admin: 03/03/19 09:09 Dose: 1 patch - Labs Labs: 03/02/19 07:00 03/02/19 07:00 Attending/Attestation - Attestation I have personally seen and examined this patient.: Yes I have fully participated in the care of the patient.: Yes I have reviewed all pertinent clinical information, including history, physical exam and plan: Yes Notes (Text): 03/03/19 14:48 Attending note; Patient seen and examined with resident. No episodes of arrhythmia noted in the environmental monitoring technician. currently Denies any chest pain. Denies any palpitations. Denies any fevers, chills. Denies any urinary symptoms. Patient is a 33-year-old female with PMH of heroin abuse on methadone, alcohol abuse presented to ED after several episodes of syncope/questionable seizure like episodes. 1. Episodes of syncope; EKG shows multiple PVCs. Likely cardiogenic. cardiac catheterization revealing non-ischemic CMP, EF-EF of 35%. Currently on aspirin, Coreg and lisinopril. Will adjust medications as per cardiology. Case discussed with Cardiology in detail. Currently no episodes of tachycardia. 2. Arrythmia: EP evaluation appreciated. plan for transfer to [facility] on monday for EP study and possible AICD placement. 3. Leukocytosis: resolved. patient is afebrile and nontoxic. No symptoms of sepsis. Urine culture is positive for gram-negative rods. Identification pending . star bob on IV Rocephin . 4. Hypocalcemia: corrected calcium is normal. 5. Hypoalbuminemia; nutrition evaluation appreciated. 6. heroin/ opiate abuse: Patient is currently on methadone program. continue methadone. 7. Anxiety; started on low-dose Ativan. 8. Smoking; smoking cessation is strongly advised . Patient is on NicoDerm patch. 9. Iron deficiency Anemia; no active bleeding noted. Started on iron. Case discussed with senior case manager in detail yesterday. Patient will be transferred to [facility] on Monday. Diagnosis, treatment plan discussed with patient in detail. 03/03/19 14:52 03/03/19 14:53
[2019-03-03 12:28] LABS: FERRITIN 11.7 ng/mL
[2019-03-03 12:58] LABS: FOLATE 9.4 ng/mL
[2019-03-03 19:43] VITALS: RESP 20
[2019-03-04 00:16] VITALS: BP 95/59; TEMP 98.2; O2SAT 97
[2019-03-04 02:19] VITALS: PULSE 66
--- NOTE | 2019-03-04 03:46 | CP.PCM.DIS ---
Provider - Provider Date of Admission: 02/28/19 15:23 Attending physician: Peggy Oquendo MD Primary care physician: NO PRIMARY CARE PROVIDER Consults: 02/27/19 21:25 Physician Consult Routine Comment: Consulting Provider: Kiet Rajan Consulting Physician: Kiet Rajan Reason for Consult: seizures 02/27/19 21:26 Physician Consult Routine Comment: Consulting Provider: Matt Barger Consulting Physician: Matt Barger Reason for Consult: Arrythmia, seizures 02/28/19 13:49 Consult [Physician Consult] Routine Comment: Consulting Provider: Spencer Montes Consulting Physician: Spencer Montes Reason for Consult: arrythmia, recurrent syncope Time Spent in preparation of Discharge (in minutes): 45 Diagnosis - Discharge Diagnosis (1) Loss of consciousness Status: Resolved (2) Non-ischemic cardiomyopathy Status: Chronic (3) HFrEF (heart failure with reduced ejection fraction) Status: Chronic (4) Heroin abuse Status: Resolved (5) Tobacco abuse Status: Chronic (6) Ventricular tachycardia (paroxysmal) Status: Resolved (7) Iron deficiency anemia Status: Chronic (8) QT prolongation Status: Chronic Hospital Course - Lab Results Lab Results: Micro Results 02/28/19 15:00 Urine Random Urine Culture - Preliminary Gram Negative [place] Most Recent Lab Values WBC 10.8 10^3/uL (4.5-11.0) 03/02/19 07:00 RBC 3.53 10^6/uL (3.5-6.1) 03/02/19 07:00 Hgb 9.9 g/dL (12.0-16.0) L 03/02/19 07:00 Hct 32.5 % (36.0-48.0) L 03/02/19 07:00 MCV 92.1 fl (80.0-105.0) 03/02/19 07:00 MCH 28.0 pg (25.0-35.0) 03/02/19 07:00 MCHC 30.5 g/dl (31.0-37.0) L 03/02/19 07:00 RDW 19.5 % (11.5-14.5) H 03/02/19 07:00 Plt Count 244 10^3/uL (120.0-450.0) 03/02/19 07:00 MPV 9.3 fl (7.0-11.0) 03/02/19 07:00 Neut % (Auto) 59.7 % (50.0-68.0) 03/02/19 07:00 Lymph % (Auto) 30.2 % (22.0-35.0) 03/02/19 07:00 [place] % (Auto) 9.1 % (1.0-6.0) H 03/02/19 07:00 Eos % (Auto) 0.7 % (1.5-5.0) L 03/02/19 07:00 Baso % (Auto) 0.3 % (0.0-3.0) 03/02/19 07:00 Lymph # (Auto) 3.3 (1.2-3.4) 03/02/19 07:00 [place] # (Auto) 1.0 (0.1-0.6) H 03/02/19 07:00 Eos # (Auto) 0.1 (0.0-0.7) 03/02/19 07:00 Baso # (Auto) 0.03 K/mm3 (0.0-2.0) 03/02/19 07:00 Absolute Neuts (auto) 6.46 (1.4-6.5) 03/02/19 07:00 Sodium 139 mmol/L (132-148) 03/02/19 07:00 Potassium 4.9 mmol/L (3.6-5.0) 03/02/19 07:00 Chloride 104 mmol/L (98-107) 03/02/19 07:00 Carbon Dioxide 31 mmol/L (21-33) 03/02/19 07:00 Anion Gap 8 (10-20) L 03/02/19 07:00 BUN 9 mg/dL (7-21) 03/02/19 07:00 Creatinine 0.6 mg/dl (0.7-1.2) L 03/02/19 07:00 Est GFR ( Amer) > 60 03/02/19 07:00 Est GFR (Non-Af Amer) > 60 03/02/19 07:00 Random Glucose 70 mg/dL (70-110) 03/02/19 07:00 Calcium 8.0 mg/dL (8.4-10.5) L 03/02/19 07:00 Phosphorus 3.9 mg/dL (2.5-4.5) 03/01/19 06:40 Magnesium 2.0 mg/dL (1.7-2.2) 03/01/19 19:38 Iron 23 ug/dL (45-180) L 03/03/19 07:00 TIBC 379 ug/dL (265-497) 03/03/19 07:00 % Saturation 6 % (20-55) L 03/03/19 07:00 Ferritin 11.7 ng/mL 03/03/19 07:00 Total Bilirubin 0.2 mg/dL (0.2-1.3) 03/02/19 07:00 AST 23 U/L (14-36) 03/02/19 07:00 ALT 15 U/L (7-56) 03/02/19 07:00 Alkaline Phosphatase 76 U/L (38-126) 03/02/19 07:00 Total Creatine Kinase 159 U/L (35-230) 02/28/19 07:16 Troponin I < 0.01 ng/mL D 03/01/19 19:38 Total Protein 5.6 g/dL (5.8-8.3) L 03/02/19 07:00 Albumin 2.9 g/dL (3.0-4.8) L 03/02/19 07:00 Globulin 2.7 gm/dL 03/02/19 07:00 Albumin/Globulin Ratio 1.1 (1.1-1.8) 03/02/19 07:00 Vitamin B12 675 pg/mL (239-931) 03/03/19 07:00 Folate 9.4 ng/mL 03/03/19 07:00 Free T4 0.86 ng/dL (0.78-2.19) 02/27/19 22:58 TSH 3rd Generation 4.21 mIU/mL (0.46-4.68) 02/27/19 22:58 Urine Color Light yellow (YELLOW) 03/02/19 18:00 Urine Appearance Clear (CLEAR) 03/02/19 18:00 Urine pH 6.5 (4.7-8.0) 03/02/19 18:00 Ur Specific [place] <= 1.005 (1.005-1.035) 03/02/19 18:00 Urine Protein Negative mg/dL (<30 mg/dL) 03/02/19 18:00 Urine Glucose (UA) Negative mg/dL (NEGATIVE) 03/02/19 18:00 Urine Ketones Negative mg/dL (NEGATIVE) 03/02/19 18:00 Urine Blood Negative (NEGATIVE) 03/02/19 18:00 Urine Nitrate Negative (NEGATIVE) 03/02/19 18:00 Urine Bilirubin Negative (NEGATIVE) 03/02/19 18:00 Urine Urobilinogen 0.2 E.U./dL (<1 E.U./dL) 03/02/19 18:00 Ur Leukocyte Esterase Negative [place]/uL (NEGATIVE) 03/02/19 18:00 Urine Opiates Screen Negative (NEGATIVE) 02/28/19 11:05 Urine Methadone Screen Positive (NEGATIVE) H 02/28/19 11:05 Ur Barbiturates Screen Negative (NEGATIVE) 02/28/19 11:05 Ur Phencyclidine Scrn Negative (NEGATIVE) 02/28/19 11:05 Ur Amphetamines Screen Negative (NEGATIVE) 02/28/19 11:05 U Benzodiazepines Scrn Negative (NEGATIVE) 02/28/19 11:05 U Oth Cocaine Metabols Negative (NEGATIVE) 02/28/19 11:05 U Cannabinoids Screen Negative (NEGATIVE) 02/28/19 11:05 YOKO Screen Negative (Negative) 03/01/19 06:48 HIV 1&2 Ag/Ab, 4th Gen Nonreactive (Nonreactive) 03/01/19 06:48 - Hospital Course Hospital Course: Upon Admission: 33 year old female with a past medical history of IV heroin use on methadone and seizures, presebted with 2 episodes of "seizures" The first seizure was witnessed while driving. She was noted to be locking up and shaking, then turning blue. Patient was evaluated at [facility] earlier that day and discharged. Subsequently patient was at home when she had her second seizure, which was witnessed by a friend who called EMS. Prior to arrival patient's last seizure was several years ago which was attributed to abuse of Xanax. She was evaluated by neurologist Dr. Sanchez at that time and not started on any seizure medications. Currently patient admits to alcohol use of one drink every four days. Last heroine use was four months ago. Denied tongue biting or loss of bowel or urinary incontinence. Hospital Course: Patient was noted to have 10 beats of ventricular tachycardia in ED. However patient was asymptomatic. Head CT was done which showed no acute pathology. Patient was started on Keppra and placed on seizure, fall, aspiration precaution, neurochecks. Neurology was consulted. Patient was also noted to have bigeminal PVCs & PACs on EKG. Cardiology was consulted. Patient underwent emergent cardiac cath with concern for sudden cardiac ; cath showed normal coronaries, non ischemic cardiomyopathy, EF 35%, EDP 12-14 mm Hg. ECHO was done which showed EF of 33%, severely impaired systolic function, global hypojinesis of left ventricle, no ventricular thrombus, mild AR/MR/TR. Patient was evaluated by digital media producer and arrangements were made for patient to be transferred to [facility] for EP study and possible defibrillator placement. Patient was optimized for discharge and transferred to [facility]. Please see EMR for full summary. Discharge Exam - Head Exam Head Exam: NORMAL INSPECTION, NORMOCEPHALIC - ENT Exam ENT Exam: Mucous Membranes Moist, Normal Exam - Neck Exam Neck exam: Normal Inspection - Respiratory Exam Respiratory Exam: NORMAL BREATHING PATTERN, UNREMARKABLE - Cardiovascular Exam Cardiovascular Exam: REGULAR RHYTHM, +S1, +S2 - GI/Abdominal Exam GI & Abdominal Exam: Soft. absent: Tenderness - Extremities Exam Extremities exam: normal inspection - Back Exam Back exam: NORMAL INSPECTION - Neurological Exam Neurological exam: Alert, Oriented x3 - Psychiatric Exam Psychiatric exam: Normal Affect, Normal Mood - Skin Skin Exam: Dry, Intact, Warm Discharge Plan - Follow Up Plan Disposition: OTHER INSTITUTION Instructions: Heart Failure, Adult (DC), Anemia Caused by Low Iron, Adult (DC), Cardiomyopathy (DC), Medical Devices for Congestive Heart Failure (CHF) Additional Instructions: You will be transferred to [facility] for an electrophysiology study on 03/04/19 at 10am Upon completion of the study, please follow all recommendations given to you by your biosecurity officer Upon discharge from the hospital: Please follow up with your primary care doctor within 3-5 days Please follow up with your biosecurity officer within 1 week Please resume the medications that have been prescribed to you Please discuss your medications with your doctors You have been started on new medications. Please take these medications as prescribed Aspirin 81mg. Take 1 tablet by mouth daily Carvedilol 3.125mg. Take 1 tablet by mouth twice daily Lisinopril 2.5mg. Take 1 tablet by mouth daily Ferrous Sulfate 324mg. Take 1 tablet by mouth twice daily. Please stop smoking Please don't use illicit drugs Please don't drive or operate heavy machinery until approved by your card iologists. If your symptoms return or you experience new symptoms, please go to the nearest emergency room Referrals: Spencer Montes MD [Staff Provider] - PCPBRII [Primary Care Provider] - Matt Baer MD [Staff Provider] - Kiet Rajan MD [Staff Provider] -
--- NOTE | 2019-03-04 19:24 | PN ---
DATE: 03/04/2019 REASON FOR CONSULTATION AND FOLLOWUP: Recurrent syncope, for electrophysiologic evaluation today. PHYSICAL EXAMINATION: VITAL SIGNS: Temperature afebrile. Heart rate 60 and blood pressure 95/56. HEENT: PERRLA. Extraocular muscles intact. NECK: Supple. No carotid bruits. No thyromegaly. CHEST: Clear to auscultation. HEART: S1 and S2, regular. ABDOMEN: Soft. EXTREMITIES: Clubbing and cyanosis negative. LABORATORY DATA: WBC 10.8, hemoglobin 9.8, hematocrit 32.5 and platelet count 244. Chemistry shows sodium 130, potassium 4.9, chloride 104, carbon dioxide 31, anion gap of 8, BUN 9, creatinine 0.6. IMPRESSION: A 33-year-old female who was brought to the emergency room, history of seizure disorder not on seizure medications since 5 years, three episodes of syncope, thought to be possible ventricular arrhythmia, only 10 beats of ventricular tachycardia, the patient underwent cardiac catheterization that was essentially negative, normal coronary, but history of substance abuse, history of methadone and heroin abuse, history of spinal fusion and active tobacco abuse. Echocardiogram shows ejection fraction 33%, severely impaired systolic function, global hypokinesis, mild mitral regurgitation, mild aortic regurgitation, and mild tricuspid regurgitation. Cardiac catheterization reveals just normal coronaries and nonischemic cardiomyopathy. The patient went on this morning at [facility] electrophysiologic studies, no inducible monomorphic ventricular tachycardia noted, but recommendation is to put the LifeVest. The patient is coming back to [facility] for a LifeVest and then the patient will go home. Discussed with Dr. Montes for possible starting amiodarone. Amiodarone was then started after this because of wait for the electrophysiologic study because it will mask the effect of arrhythmia. Dr. Montes suggested that not to start because of inpatient, she is protected with the LifeVest. We will observe and reassess left ventricular function in 3-6 months and if left ventricular function does not improve then may upgrade to automatic implantable cardioverter-defibrillator and if improves then maybe can come off the vent, in the interim continue as suggested. Continue lisinopril 2.5 mg, continue Coreg and continue aspirin 81 mg daily. We will follow with you. Thank you Dr. Oquendo for providing us the opportunity in taking care of the patient, Sussy Soni. Matt Baer MD
== END 2019-03-04 08:32 | disposition short-term general hospital (02) | DRG 192 ==
LOC: ED 16:39 → ERH 20:43 → 2RSO 23:00 → OBSVTOIN 02-28 15:23
PROVIDERS: ADMIT Internal Medicine; ATTEND Internal Medicine
PROC: 4A023N7 Measurement of Cardiac Sampling and Pressure, Left Heart, Percutaneous Approach (ICD-10-PCS; principal; 2019-02-28)
PROC: B2151ZZ Fluoroscopy of Left Heart using Low Osmolar Contrast (ICD-10-PCS; 2019-02-28)
PROC: B2111ZZ Fluoroscopy of Multiple Coronary Arteries using Low Osmolar Contrast (ICD-10-PCS; 2019-02-28)
PROC: HZ81ZZZ Medication Management for Substance Abuse Treatment, Methadone Maintenance (ICD-10-PCS; 2019-02-28)
DX: I47.2 Ventricular tachycardia (principal); I42.9 Cardiomyopathy, unspecified; I50.20 Unspecified systolic (congestive) heart failure; R56.9 Unspecified convulsions; N39.0 Urinary tract infection, site not specified; F11.20 Opioid dependence, uncomplicated; E83.51 Hypocalcemia; D50.9 Iron deficiency anemia, unspecified; F13.10 Sedative, hypnotic or anxiolytic abuse, uncomplicated; F10.10 Alcohol abuse, uncomplicated; I08.3 Combined rheumatic disorders of mitral, aortic and tricuspid valves; F41.9 Anxiety disorder, unspecified; R55 Syncope and collapse; F17.210 Nicotine dependence, cigarettes, uncomplicated; R07.89 Other chest pain; Z79.82 Long term (current) use of aspirin; Z98.1 Arthrodesis status; Z98.84 Bariatric surgery status

== ENCOUNTER 2019-03-04 17:01 | Observation (INO) | payer MEDICAID, OTHER ==
[2019-03-04 18:15] VITALS: BMI 28.3
--- NOTE | 2019-03-04 20:22 | CP.PCM.HP ---
<Elida Rollins - Last Filed: 03/05/19 00:19> History of Present Illness - History of Present Illness History of Present Illness: HISTORY & PHYSICAL NOTE FOR HOSPITALIST SERVICE- Dr. Sky Rollins PGY1 33 year old female with a PMH of heroin abuse on methadone ([facility]) and seizures, presented to ED on 02/27/19 with 2 episodes of "seizures." The first "seizure" was witnessed while driving. She was noted to be locking up and shaking, then turning blue. Patient was evaluated at [facility] earlier that day and discharged. Subsequently patient was at home when she had a second "seizure" which was witnessed by a friend who called EMS. Prior to arrival at patient's last seizure was several years ago which was attributed to xanax abuse. She was evaluated by neurologist Dr. Sanchez at that time and not started on any anti-epileptics. Pt reported 4-5 cups of coffee intake prior to seizure-like events Head CT was done which showed no acute pathology. Patient was started on Keppra and placed on seizure, fall, aspiration precaution, neurochecks. Neurology was consulted. Patient was also noted to have bigeminal PVCs & PACs on EKG. Cardiology was consulted and evaluated patient. Patient underwent emergent cardiac cath (Dr. Baer) with concern for sudden cardiac ; cath showed normal coronaries, non ischemic cardiomyopathy, EF 35%, EDP 12-14 mm Hg. ECHO was done which showed EF of 33%, severely impaired systolic function, global hypolinesis of left ventricle, no ventricular thrombus, mild AR/MR/TR. Patient was evaluated by behavioral health worker, Dr. Montes and transferred to [facility] on 03/04/19 for EP study. She was started aspirin 81mg, carvedilol 3.125, lisinopril 2.5 per consulting sales executive recommendations. Pt was also started on ferrous sulfate for iron deficiency anemia. At [facility] on 03/04, EP study was performed and vtach was unable to be induced during procedure. Pt was subseqently transferred back to [facility] for direct admission for placement of lifevest. Upon interview today, pt reports no acute complaints. She denies fevers, chills, headache, dizziness, numbness, tingling, weakness, chest pain, palpitations, shortness of breath, nausea, vomiting, constipation, diarrhea, dysuria, hematuria. PMH: seizures, heroin abuse on methadone PSH: gastric bypass, spinal fusion Allergies: NKDA Social Hx: Smokes 1/2 PPD for 17 years, drinks a few shots of vodka every 4 days, heroin abuse (last use was 4 months ago). Patient is unemployed. Lives at home with mother and sister. Drink 4-5+ cups coffee/day Family Hx: Mother has heart problems. Father had heart problems and dies of pancreatic cancer. Medications: Methadone 160mg PO QD ([facility]) PMD: none Present on Admission - Present on Admission Any Indicators Present on Admission: No Review of Systems - Review of Systems Review of Systems: per HPI Past Patient History - Infectious Disease Hx of Infectious Diseases: None - Past Social History Smoking Status: Current Some Days Smoker - CARDIAC Hx Cardiac Disorders: Yes (Life vest, Vtach) Hx Cardia Arrhythmia: Yes (Vtach) - PULMONARY Hx Respiratory Disorders: Yes (SMOKES 10 CIG A DAY.USED TO SMOKE PK 1/2 A DAY.) - NEUROLOGICAL Hx Neurological Disorder: Yes Hx Seizures: Yes (last one 5 yrs ago 10-13-) Other/Comment: 02-27-19 HAD 3 SEIZURES TODAY. WAS DRIVING AT AROUND 12 NOON SENT TO [facility],WAS D/C SAME DAY.,4 PM AND 8 PM ED [facility].. ADMITTED FOR SZ.WITNESSED. - HEENT Hx HEENT Problems: No - RENAL Hx Chronic Kidney Disease: No - ENDOCRINE/METABOLIC Hx Endocrine Disorders: No - HEMATOLOGICAL/ONCOLOGICAL Hx Blood Disorders: No - INTEGUMENTARY Hx Dermatological Problems: Yes (TATTOOS.) - MUSCULOSKELETAL/RHEUMATOLOGICAL Hx Falls: No - GASTROINTESTINAL Hx Gastrointestinal Disorders: Yes (GASTRIC BYPASS SURGERY) - GENITOURINARY/GYNECOLOGICAL Hx Genitourinary Disorders: No - PSYCHIATRIC Hx Psychophysiologic Disorder: Yes (ETOH ABUSE H/O,SMOKES CIGARETTES,HEROIN ABUSE ON MMTP) Hx Substance Use: Yes (Yes: HEROINE ABUSE ON METHADONE MMTP 160 MG DAILY.) - SURGICAL HISTORY Hx Surgeries: Yes (SPINAL SURGERY,HERNIORHAPPHY.) Hx Gastric Bypass Surgery: Yes - ANESTHESIA Hx Anesthesia: Yes Hx Anesthesia Reactions: No Hx Malignant Hyperthermia: No Meds Allergies/Adverse Reactions: Allergies Allergy/AdvReac Type Severity Reaction Status Date / Time No Known Allergies Allergy Verified 02/27/19 23:00 Physical Exam - Constitutional Appears: Well, Non-toxic, No Acute Distress - Head Exam Head Exam: NORMAL INSPECTION, NORMOCEPHALIC - Eye Exam Eye Exam: EOMI, Normal appearance - ENT Exam ENT Exam: Mucous Membranes Moist, Normal Exam - Neck Exam Neck exam: Positive for: Normal Inspection - Respiratory Exam Respiratory Exam: Clear to Auscultation Bilateral, NORMAL BREATHING PATTERN - Cardiovascular Exam Cardiovascular Exam: REGULAR RHYTHM, +S1, +S2 - GI/Abdominal Exam GI & Abdominal Exam: Soft. absent: Tenderness - Extremities Exam Extremities exam: Positive for: normal inspection. Negative for: calf tend erness - Back Exam Back exam: NORMAL INSPECTION - Neurological Exam Neurological exam: Alert, Oriented x3 - Psychiatric Exam Psychiatric exam: Normal Affect, Normal Mood - Skin Skin Exam: Dry, Intact, Warm Results - Vital Signs Recent Vital Signs: Last Vital Signs Temp Pulse 52 L 03/04/19 18:23 Resp 16 03/04/19 18:23 BP Pulse Ox Assessment & Plan - Assessment and Plan (Free Text) Assessment: 33y/o F with PMH of non-ischemic cardiomyopathy, heroin abuse, benzodiazepine- induced seizures initially presented to [facility] on 02/27/19 for 3 separate episodes of syncopal episodes. Pt was evaluated by cardiology during that visit and noted PAC, PVC in pattern of ventricular bigeminy with concern for sudden cardiac . Pt was taken urgently to cardiac cath where she was found to have non- ischemic cardiomyopathy with reduced EF- 33%. Pt subsequently evaluated by EP and transferred to [facility] for EP study where no inducible monomorphic V. tach was noted. Pt subequently transferred back to [facility] for arrangements of lifevest placement. Plan: Syncope - EKG revealed multiple PACs, PVCs. Head CT shows no acute findings - s/p cardiac catheterization revealing non-ischemic CMP, EF-EF%, EDP 12-14% - s/p EP study 03/04: no inducible monomorphic Vtach - continue on ASA, Coreg, ACEI per cardiology recs - Continue monitoring on telemetry - Neurology recommending video EEG/MRI once cardiologically stable - no seizure prophylaxis at this time per neurology Hx heroin abuse - last use 4 months prior - UDS negative for opiates - currently on methadone 160mg, [facility] Tobacco use disorder - continue Nicotine patch - cessation counseling Hypoalbuminemia - nutritrion eval appreciated - started on ensure shakes Hypocalcemia - Corrected calcium: 8.88 - replete as necessary Anxiety - continue ativan PRN PPX - lovenox/pepcid Case reviewed with attending physician, Dr. Sky Rollins <Phil Swanson - Last Filed: 03/05/19 09:02> Results - Vital Signs Recent Vital Signs: Last Vital Signs Temp 97.6 F 03/05/19 06:00 Pulse 53 L 03/05/19 06:00 Resp 18 03/05/19 06:00 BP 90/57 L 03/05/19 06:00 Pulse Ox 95 03/05/19 06:00 - Labs Result Diagrams: 03/05/19 07:30 03/05/19 07:30 Labs: Laboratory Results - last 24 hr 03/05/19 03/05/19 07:30 07:30 WBC 10.1 RBC 4.20 Hgb 12.2 D Hct 38.0 MCV 90.5 MCH 29.0 MCHC 32.1 RDW 19.2 H Plt Count 264 MPV 9.0 Neut % (Auto) 62.8 Lymph % (Auto) 27.5 Andrew % (Auto) 8.5 H Eos % (Auto) 1.0 L Baso % (Auto) 0.2 Lymph # (Auto) 2.8 Andrew # (Auto) 0.9 H Eos # (Auto) 0.1 Baso # (Auto) 0.02 Absolute Neuts (auto) 6.32 Sodium 137 Potassium 4.7 Chloride 104 Carbon Dioxide 26 Anion Gap 12 BUN 15 Creatinine 0.6 L Est GFR ( Amer) > 60 Est GFR (Non-Af Amer) > 60 Random Glucose 83 Calcium 8.8 Phosphorus 5.0 H Magnesium 2.1 Total Bilirubin 0.2 AST 28 ALT 11 Alkaline Phosphatase 75 Total Protein 6.9 Albumin 3.6 Globulin 3.2 Albumin/Globulin Ratio 1.1 Attending/Attestation - Attestation I have personally seen and examined this patient.: Yes I have fully participated in the care of the patient.: Yes I have reviewed all pertinent clinical information: Yes Notes (Text): 03/05/19 09:01 Patient was seen when she was in the ER. Medical record was reviewed . Agree with history, physical examination, assessment and plan.
[2019-03-04] MEDS ORDERED: Enoxaparin 40 mg Syringe SC ONE (21:40)
[2019-03-05 00:15] VITALS: RESP 18; O2SAT 95
[2019-03-05] MEDS ORDERED: Multivitamin Therapeutic Tab PO SCH (08:00)
[2019-03-05 08:12] LABS: BASO # 0.02 K/mm3 (0.0-2.0); BASO % 0.2 % (0.0-3.0); EOS # 0.1 (0.0-0.7); HEMOGLOBIN 12.2 g/dL (12.0-16.0); LYMPH # 2.8 (1.2-3.4); LYMPH % 27.5 % (22.0-35.0); MEAN CELL VOLUME 90.5 fl (80.0-105.0); MEAN CORPUSCULAR HGB CONC 32.1 g/dl (31.0-37.0); MONO # 0.9 (0.1-0.6); MONO % 8.5 % (1.0-6.0); RBC 4.2 10^6/uL (3.5-6.1); RED CELL DISTRIBUTION WIDTH 19.2 % (11.5-14.5); WHITE BLOOD COUNT 10.1 10^3/uL (4.5-11.0)
[2019-03-05 08:19] LABS: ALB/GLOB RATIO 1.1 (1.1-1.8); ALBUMIN 3.6 g/dL (3.0-4.8); ALT/SGPT 11 U/L (7-56); AST/SGOT 28 U/L (14-36); BLOOD UREA NITROGEN 15 mg/dL (7-21); CALCIUM 8.8 mg/dL (8.4-10.5); GFR NON-AFRICAN AMERICAN > 60
[2019-03-05] MEDS ORDERED: Enoxaparin 40 mg Syringe SC SCH (10:00)
[2019-03-05 12:22] VITALS: TEMP 98.2
--- NOTE | 2019-03-05 16:18 | CP.PCM.DIS ---
Provider - Provider Date of Admission: 03/04/19 17:01 Attending physician: Ema De Los Santos DO Primary care physician: NO PRIMARY CARE PROVIDER Consults: 03/04/19 20:08 Physician Consult Routine Comment: Consulting Provider: Matt Baer Consulting Physician: Matt Baer Reason for Consult: EF of 33%, severely impaired systolic function 03/04/19 20:10 Physician Consult Routine Comment: Consulting Provider: Spencer Montes Consulting Physician: Spencer Montes Reason for Consult: EF of 33%, global hypokinesis, potential life vest candidate Time Spent in preparation of Discharge (in minutes): 45 Hospital Course - Lab Results Lab Results: Most Recent Lab Values WBC 10.1 10^3/uL (4.5-11.0) 03/05/19 07:30 RBC 4.20 10^6/uL (3.5-6.1) 03/05/19 07:30 Hgb 12.2 g/dL (12.0-16.0) D 03/05/19 07:30 Hct 38.0 % (36.0-48.0) 03/05/19 07:30 MCV 90.5 fl (80.0-105.0) 03/05/19 07:30 MCH 29.0 pg (25.0-35.0) 03/05/19 07:30 MCHC 32.1 g/dl (31.0-37.0) 03/05/19 07:30 RDW 19.2 % (11.5-14.5) H 03/05/19 07:30 Plt Count 264 10^3/uL (120.0-450.0) 03/05/19 07:30 MPV 9.0 fl (7.0-11.0) 03/05/19 07:30 Neut % (Auto) 62.8 % (50.0-68.0) 03/05/19 07:30 Lymph % (Auto) 27.5 % (22.0-35.0) 03/05/19 07:30 Hardee % (Auto) 8.5 % (1.0-6.0) H 03/05/19 07:30 Eos % (Auto) 1.0 % (1.5-5.0) L 03/05/19 07:30 Baso % (Auto) 0.2 % (0.0-3.0) 03/05/19 07:30 Lymph # (Auto) 2.8 (1.2-3.4) 03/05/19 07:30 Hardee # (Auto) 0.9 (0.1-0.6) H 03/05/19 07:30 Eos # (Auto) 0.1 (0.0-0.7) 03/05/19 07:30 Baso # (Auto) 0.02 K/mm3 (0.0-2.0) 03/05/19 07:30 Absolute Neuts (auto) 6.32 (1.4-6.5) 03/05/19 07:30 Sodium 137 mmol/L (132-148) 03/05/19 07:30 Potassium 4.7 mmol/L (3.6-5.0) 03/05/19 07:30 Chloride 104 mmol/L (98-107) 03/05/19 07:30 Carbon Dioxide 26 mmol/L (21-33) 03/05/19 07:30 Anion Gap 12 (10-20) 03/05/19 07:30 BUN 15 mg/dL (7-21) 03/05/19 07:30 Creatinine 0.6 mg/dl (0.7-1.2) L 03/05/19 07:30 Est GFR ( Amer) > 60 03/05/19 07:30 Est GFR (Non-Af Amer) > 60 03/05/19 07:30 Random Glucose 83 mg/dL (70-110) 03/05/19 07:30 Calcium 8.8 mg/dL (8.4-10.5) 03/05/19 07:30 Phosphorus 5.0 mg/dL (2.5-4.5) H 03/05/19 07:30 Magnesium 2.1 mg/dL (1.7-2.2) 03/05/19 07:30 Total Bilirubin 0.2 mg/dL (0.2-1.3) 03/05/19 07:30 AST 28 U/L (14-36) 03/05/19 07:30 ALT 11 U/L (7-56) 03/05/19 07:30 Alkaline Phosphatase 75 U/L (38-126) 03/05/19 07:30 Total Protein 6.9 g/dL (5.8-8.3) 03/05/19 07:30 Albumin 3.6 g/dL (3.0-4.8) 03/05/19 07:30 Globulin 3.2 gm/dL 03/05/19 07:30 Albumin/Globulin Ratio 1.1 (1.1-1.8) 03/05/19 07:30 - Hospital Course Hospital Course: 33 year old female with a PMH of heroin abuse on methadone ([facility]) and seizures, presented to ED on 02/27/19 with 2 episodes of witnessed seizures. Patient was admitted for further workup.Head CT was done which showed no acute pathology. Patient was started on Keppra and placed on seizure, fall, aspiration precaution, neurochecks. Neurology was consulted. Patient was also noted to have bigeminal PVCs & PACs on EKG. Cardiology was consulted and evaluated patient. Patient underwent emergent cardiac cath (Dr. Baer) with concern for sudden cardiac ; cath showed normal coronaries, non ischemic cardiomyopathy, EF 35%, EDP 12-14 mm Hg. ECHO was done which showed EF of 33%, severely impaired systolic function, LV global hypokinesis, no thrombus, mild AR/MR/TR. Patient was evaluated by weaver tire cord, Dr. Montes and transferred to [facility] on 03/04/19 for EP study. She was started aspirin 81mg, carvedilol 3.125, lisinopril 2.5 per film touch up inspector recommendations. Pt was also started on ferrous sulfate for iron deficiency anemia. At [facility] on 03/04, EP study was performed and vtach was unable to be induced during procedure. Patient was subsequently transferred back to [facility] for direct admission. MUGA scan was done, reviewed by cardiology. Lifevest placed today. Patient is hemodynamically stable, asymptomatic, and clinically optimized for discharge today. Additional discharge instructions given to the patient as below. Discharge Exam - Additional Findings Additional findings: - Constitutional Appears: Well, Non-toxic, No Acute Distress - Head Exam Head Exam: NORMAL INSPECTION, NORMOCEPHALIC - Eye Exam Eye Exam: EOMI, Normal appearance - ENT Exam ENT Exam: Mucous Membranes Moist, Normal Exam - Neck Exam Neck exam: Positive for: Normal Inspection - Respiratory Exam Respiratory Exam: Clear to Auscultation Bilateral, NORMAL BREATHING PATTERN - Cardiovascular Exam Cardiovascular Exam: REGULAR RHYTHM, +S1, +S2 - GI/Abdominal Exam GI & Abdominal Exam: Soft. absent: Tenderness - Extremities Exam Extremities exam: Positive for: normal inspection. Negative for: calf tenderness - Back Exam Back exam: NORMAL INSPECTION - Neurological Exam Neurological exam: Alert, Oriented x3 - Psychiatric Exam Psychiatric exam: Normal Affect, Normal Mood - Skin Skin Exam: Dry, Intact, Warm Discharge Plan - Discharge Medications Prescriptions: Aspirin [Aspirin Chewable] 81 mg PO DAILY #30 chew Carvedilol [Coreg] 3.125 mg PO BID #60 tab Ferrous Sulfate [Feosol] 324 mg PO BID #30 ect Lisinopril [Zestril] 2.5 mg PO DAILY #30 tab Nicotine 7 mg/24 hr [Nicoderm CQ] 1 patch TD DAILY #14 patch - Follow Up Plan Condition: GOOD Disposition: HOME/ ROUTINE Patient education suggested?: Yes Instructions: Heart Failure With Reduced Ejection Fraction Additional Instructions: -Please follow up the [facility] located in the [facility] 03/14/19 at 2:30PM to establish with a primary care doctor and discuss your hospital stay. You can reach the [facility] at phone number [phone]. -You will be taking the following medications at home: coreg 3.125 mg 1 tab two times a day, lisinopril 2.5 mg 1 tab daily, Aspirin 81 mg 1 tab daily, ferrous sulfate 324 mg 1 tab two times a day, nicotine patch daily (do not use if your are smoking). Please get any refills needed from your primary care doctor. -You can continue taking your home methadone as given by the [facility] clinic. -Please follow up with weaver tire cord Dr Montes within one week of discharge. -Please follow up with film touch up inspector Dr Baer, within one week of discharge -Please use your life vest as directed. -Please take your home medications as prescribed -Please return to the emergency room if symptoms return or you experience new concerning symptoms. Referrals: Matt Baer MD [Staff Provider] - Spencer Montes MD [Staff Provider] - Chelsea Ross MD [Medical Doctor] -
[2019-03-05 17:47] VITALS: BP 101/67; PULSE 88
--- NOTE | 2019-03-05 20:57 | CON ---
DATE: 03/05/2019 REASON FOR CONSULTATION AND FOLLOWUP: Status post sleep study, no inducible monomorphic ventricular tachycardia, history of syncope x3, possible ventricular tachycardia, status post cardiac catheterization with normal coronaries. BRIEF CLINICAL HISTORY: This is a 33-year-old female with a past medical history significant for alcohol abuse in the past, history of recent heroin abuse 3 to 4 months ago, history of cocaine abuse 6 years ago after tobacco abuse, admitted with 3 episodes of syncope. On admission the patient had 10 beats of VT, possibly thought to be a cardiac event, possibly arrhythmia. The patient underwent cardiac catheterization that revealed abnormal coronary ejection fraction 35%, EP in the range of 12 to 14. Echo was done that shows also ejection fraction 33%. The patient was then sent for the EP study, no inducible VT noted and suggested for the LifeVest, awaiting for the LifeVest to be placed, so the patient was transferred back from [place] to back for baby sitting until the LifeVest is done. Discussed with Dr. Montes with reference to amiodarone, suggested not to start amiodarone for now. The patient denies any chest pain, shortness of breath, or any palpitation. PAST MEDICAL HISTORY: As above. History of 3 episodes of syncope, ventricular tachycardia, history of cardiac catheterization, nonobstructive coronary artery disease, decreased LV function of 35%, EP 12 to 14. Echo was done that shows ejection fraction 33%, severely impaired LV function, global hypokinesis. No vertical thrombus noted, mild MR, mild TR, mild AR, status post EP yesterday 03/04/2019, no inducible VT noted. CURRENT MEDICATIONS: The patient is on baby aspirin, carvedilol 3.125 mg, and lisinopril 2.5 mg daily. PHYSICAL EXAMINATION VITAL SIGNS: Temperature afebrile. Heart rate 72, blood pressure 107/72. HEENT: PERRLA. Extraocular muscles intact. NECK: Supple. No carotid bruits. No thyromegaly. CHEST: Clear to auscultation. HEART: S1 and S2, regular. ABDOMEN: Soft. EXTREMITIES: Clubbing and cyanosis negative. LABORATORY DATA: Blood workup; WBC 10.1, hemoglobin 10.9, hematocrit 38.0, platelet count 264. Chemistry shows sodium 130, potassium 4.6, chloride 104, carbon dioxide 26, anion gap of 12, BUN of 15, creatinine 0.6. IMPRESSION: A 33-year-old female with a past medical history significant for obesity, history of alcohol abuse in the past, history of tobacco abuse active, history of cocaine 6 years ago, history of heroin abuse 2 weeks ago, admitted with 3 episodes of syncope with ventricular tachycardia, possible ventricular tachycardia rule out seizure. The patient underwent invasive cardiac workup including a CAT that shows normal coronary arteries, decreased left ventricular function, ejection fraction 35%. Echocardiogram shows the ejection fraction is similarly decreased, global hypokinesis, mild mitral regurgitation, mild tricuspid regurgitation. The patient's electrophysiological study at [facility] yesterday shows no inducible ventricular tachycardia, recommend Vest. RECOMMENDATIONS: Continue baby aspirin 81 mg daily, continue Coreg 3.125 mg daily, continue lisinopril. We will get MUGA scan to assess the LV function. We will see if LifeVest available, the patient will be discharged home. Discussed with Dr. Montes reference of starting amiodarone, suggested hold it off for now. Initially the amiodarone was held because of EP study so should not mask the electrophysiologic study for arrhythmia, but now is not started because of electrophysiology, Dr. Montes suggested to hold it off because of the patient's age and history of substance abuse. Awaiting for LifeVest. We will get the MUGA scan. We will follow with you. Thank you Dr. Montes for providing us the opportunity in taking care of the patient, Sussy Soni. Matt Baer MD
[2019-03-05] MEDS ORDERED: Enoxaparin 40 mg Syringe SC ONE (21:13)
--- NOTE | 2019-03-05 23:05 | CARD ---
APPROVED REPORT Date of service: 03/05/2019 INDICATION Cardiomyopathy PROCEDURE The above named patient recieved 28.8 millicuries of Tc99m tagged red blood cells intravenously. After achieving equilibrium, gated imaging of 16/frame/cycle was performed utillizing Gamma camera interfaced with a digital computer and gated device. Gated imaging was then performed in the left anterior oblique, anterior, and the left lateral projections. Findings Calculated LV Ejection Fraction is 50%. Impressions Calculated Ejection Fraction is 50 %.
== END 2019-03-05 18:30 | disposition home or self-care (01) ==
LOC: 2RSO 17:01 → INTOOBSV 17:01
PROVIDERS: ADMIT Hospitalist; ATTEND Hospitalist
DX: I47.2 Ventricular tachycardia (principal); I49.3 Ventricular premature depolarization; D50.9 Iron deficiency anemia, unspecified; F11.20 Opioid dependence, uncomplicated; I08.1 Rheumatic disorders of both mitral and tricuspid valves; I42.9 Cardiomyopathy, unspecified; I25.10 Atherosclerotic heart disease of native coronary artery without angina pectoris; R56.9 Unspecified convulsions; I50.20 Unspecified systolic (congestive) heart failure; R55 Syncope and collapse; E88.09 Other disorders of plasma-protein metabolism, not elsewhere classified; F41.9 Anxiety disorder, unspecified; Z87.891 Personal history of nicotine dependence; Z98.84 Bariatric surgery status
CPT/HCPCS: 36415; 78472; 80053; 83735; 84100; 85025; 96372; G0378; J1650